=== PATIENT | male | born 1970 | race American Indian/Alaskan Native ===

== ENCOUNTER 2017-04-06 13:21 | Emergency (ER) | payer SELFPAY ==
[2017-04-06 14:23] LABS: Basophils % (Auto) 0.9 % (0.0-1.8); Eosinophils % (Auto) 3.5 % (0.0-4.3); Hemoglobin 12.8 gm/dl (11.8-15.2); Mean Corpuscular HGB Conc 34 % (32-34); Mean Corpuscular Hemoglobin 32 pg (28-32); Mean Corpuscular Volume 94 fl (84-94); Platelet Count 217 K/mm3 (140-440); Red Blood Count 4.03 M/mm3 (3.65-5.03); Red Cell Distribution Width 14.3 % (13.2-15.2); White Blood Count 5.7 K/mm3 (4.5-11.0)
[2017-04-06 14:31] LABS: Anion Gap 19 mmol/L; Blood Urea Nitrogen 21 mg/dL (9-20); Calcium 9.4 mg/dL (8.4-10.2); Carbon Dioxide 25 mmol/L (22-30); Chloride 97.2 mmol/L (98-107); Glucose 105 mg/dL (75-100); Potassium 3.8 mmol/L (3.6-5.0); Sodium 137 mmol/L (137-145)
[2017-04-06 14:32] LABS: INR 0.96 (0.87-1.13)
[2017-04-06] MEDS ORDERED: CATAPRES PO ONE (16:38)
[2017-04-06] MEDS ORDERED: ASPIRIN PO ONE (16:38)
--- NOTE | 2017-04-06 17:16 | Emergency Department Report ---
ED Chest Pain HPI - General Chief Complaint: Chest Pain Stated Complaint: CHEST PAIN/SOB Time Seen by Provider: 04/06/17 16:29 Source: patient Mode of arrival: Ambulatory Limitations: No Limitations - History of Present Illness Initial Comments: 46-year-old male with a past medical history of kidney stones presents hospital complaints of chest pain at any 2 weeks. Pain is in the anterior chest, dull, intermittent, worse with movement, cough, and activity. Pain rated process tenderness in intensity. No specific alleviating factors. Patient also having a cough productive of yellow sputum and intermittent shortness of breath for 2 weeks. Patient admits to tobacco use but quit smoking 2 weeks ago when symptoms started. Patient presents significant hypertensive and states he has not seen a doctor in greater than 10 years. Denies headache, blurred vision, Tenderness, recent travel, fever, or leg edema. - Related Data Previous Rx's Medication Instructions Recorded Last Taken Type Metoprolol/Hydrochlorothiazide 1 tab PO BID #60 tablet 04/06/17 Unknown Rx [Metoprolol HCTZ 50-25 mg TAB] amLODIPine [Norvasc] 10 mg PO DAILY #30 tab 04/06/17 Unknown Rx Allergies Allergy/AdvReac Type Severity Reaction Status Date / Time No Known Allergies Allergy Unverified 04/06/17 13:53 Heart Score - HEART Score History: Slightly suspicious EKG: Non-specific Age: 45-65 Risk factors: 1-2 risk factors Troponin: < normal limit HEART Score: 3 ED Review of Systems ROS: Stated complaint: CHEST PAIN/SOB Other details as noted in HPI Comment: All other systems reviewed and negative Other: Constitutional: No fevers chills Eyes: No eye pain visual changes ENT: No ear pain or throat pain Neck: Denies pain Respiratory: As per HPI Cardiovascular: As per HPI GI: Denies abdominal pain, nausea, vomiting, diarrhea : Denies dysuria Musculoskeletal: Denies back pain Skin: Denies rash, lesions, erythema Neurologic: Denies headache, numbness, weakness Psychiatric: Denies suicidal ideation, hallucinations ED Past Medical Hx - Past Medical History Hx Kidney Stones: Yes - Surgical History Past Surgical History?: No - Social History Smoking Status: Former Smoker Substance Use Type: Alcohol - Medications Home Medications: Home Medications Medication Instructions Recorded Confirmed Last Taken Type Metoprolol/Hydrochlorothiazide 1 tab PO BID #60 tablet 06/23/17 Unknown Rx [Metoprolol HCTZ 50-25 mg TAB] amLODIPine [Norvasc] 10 mg PO DAILY #30 tab 04/06/17 Unknown Rx ED Physical Exam - General Limitations: No Limitations - Other Other exam information: General: No limitations, patient is alert in no acute distress Head exam: Atraumatic, normocephalic Eyes exam: Normal appearance ENT: Moist mucous membrane, normal oropharynx Neck exam: Normal inspection, full range of motion, no meningismus nontender Respiratory exam: Clear to auscultation bilateral, no wheezes, rales, crackles Cardiovascular: Normal rate and rhythm, chest wall nontender Abdomen: Soft, nondistended, and nontender, with normal bowel sounds, no rebound, or guarding Extremity: Full range of motion normal inspection no deformity, no calf tenderness or edema Back: Normal Inspection, full range of motion, no tenderness Neurologic: Alert, oriented x3, cranial nerves intact, no motor or sensory deficit Psychiatric: normal affect, normal mood Skin: Warm, dry, intact ED Course Vital Signs 04/06/17 04/06/17 04/06/17 13:47 16:07 17:00 Temperature 98.5 F Pulse Rate 91 H 100 H 99 H Respiratory 18 16 Rate Blood Pressure 236/166 209/157 Blood Pressure 198/149 [Left] O2 Sat by Pulse 100 100 Oximetry 04/06/17 17:46 Temperature Pulse Rate 72 Respiratory Rate Blood Pressure 213/144 Blood Pressure [Left] O2 Sat by Pulse Oximetry GAVINO score - Gavino Score Age > 65: (0) No Aspirin use within the Past 7 Days: (0) No 3 or more CAD Risk Factors: (0) No 2 or more Angina events in past 24 hrs: (1) Yes Known CAD with more than 50% Stenosis: (0) No Elevated Cardiac Markers: (0) No ST Deviation Greater than 0.5mm: (0) No GAVINO Score: 1 ED Medical Decision Making - Lab Data Result diagrams: 04/06/17 13:58 04/06/17 13:58 Lab Results 04/06/17 04/06/17 04/06/17 Range/Units 13:58 13:58 13:58 WBC 5.7 (4.5-11.0) K/mm3 RBC 4.03 (3.65-5.03) M/mm3 Hgb 12.8 (11.8-15.2) gm/dl Hct 38.0 (35.5-45.6) % MCV 94 (84-94) fl MCH 32 (28-32) pg MCHC 34 (32-34) % RDW 14.3 (13.2-15.2) % Plt Count 217 (140-440) K/mm3 Lymph % (Auto) 26.5 (13.4-35.0) % [place] % (Auto) 8.2 H (0.0-7.3) % Eos % (Auto) 3.5 (0.0-4.3) % Baso % (Auto) 0.9 (0.0-1.8) % Lymph # 1.5 (1.2-5.4) K/mm3 [place] # 0.5 (0.0-0.8) K/mm3 Eos # 0.2 (0.0-0.4) K/mm3 Baso # 0.1 (0.0-0.1) K/mm3 Seg Neutrophils % 60.9 (40.0-70.0) % Seg Neutrophils # 3.5 (1.8-7.7) K/mm3 PT 13.3 (12.2-14.9) Sec. INR 0.96 (0.87-1.13) Sodium 137 (137-145) mmol/L Potassium 3.8 (3.6-5.0) mmol/L Chloride 97.2 L (98-107) mmol/L Carbon Dioxide 25 (22-30) mmol/L Anion Gap 19 mmol/L BUN 21 H (9-20) mg/dL Creatinine 1.5 (0.8-1.5) mg/dL Estimated GFR 50 ml/min BUN/Creatinine Ratio 14.00 % Glucose 105 H (75-100) mg/dL Calcium 9.4 (8.4-10.2) mg/dL Troponin T < 0.010 (0.00-0.029) ng/mL - EKG Data -: EKG Interpreted by Me (sinus rhythm rate 93,SRIKANTH, lateral and inferior T inversions LVH with rep) - Radiology Data Radiology results: image reviewed (cxr pa and lat: naf) - Medical Decision Making No acute infiltrate identified on x-ray. Parents admitted to the hospital due to significant hypertension with associated chest pain and no previous risk stratification or cardiac workup. Patient is pain free during my evaluation. Clonidine 0.2 mg and aspirin 325 provide - Differential Diagnosis hypertensive emergency, chest pain, pneumonia, bronchitis Critical Care Time: No Critical care attestation.: If time is entered above; I have spent that time in minutes in the direct care of this critically ill patient, excluding procedure time. ED Disposition Clinical Impression: Chest pain, Uncontrolled hypertension, Smoker, Cough Disposition: OP ADMIT IP TO THIS HOSP Is pt being admited?: Yes Does the pt Need Aspirin: Yes Condition: Stable Prescriptions: amLODIPine [Norvasc] 10 mg PO DAILY #30 tab Metoprolol/Hydrochlorothiazide [Metoprolol HCTZ 50-25 mg TAB] 1 tab PO BID #60 tablet Time of Disposition: 17:17 (Dr Hein/hosp)
--- NOTE | 2017-04-06 17:26 | History and Physical Report ---
Medications and Allergies Allergies Allergy/AdvReac Type Severity Reaction Status Date / Time No Known Allergies Allergy Unverified 04/06/17 13:53 Home Medications Medication Instructions Recorded Confirmed Last Taken Type No Known Home Medications [No 04/06/17 04/06/17 Unknown History Reported Home Medications] Exam - Constitutional Vitals: Temp Pulse Resp BP Pulse Ox 98.5 F 99 H 16 209/157 100 04/06/17 13:47 04/06/17 17:00 04/06/17 16:07 04/06/17 17:00 04/06/17 16:07 Results - Labs CBC & Chem 7: 04/06/17 13:58 04/06/17 13:58 Labs: Abnormal lab results 04/06/17 04/06/17 Range/Units 13:58 13:58 [place] % (Auto) 8.2 H (0.0-7.3) % Chloride 97.2 L (98-107) mmol/L BUN 21 H (9-20) mg/dL Glucose 105 H (75-100) mg/dL
[2017-04-06] MEDS ORDERED: NORVASC PO ONE ×2 (17:29→18:00)
[2017-04-06] MEDS ORDERED: HCTZ PO ONE (17:30)
[2017-04-06] MEDS ORDERED: LOPRESSOR PO ONE (17:30)
[2017-04-06] MEDS ORDERED: APRESOLINE IV ONE (18:00)
[2017-04-06 19:13] VITALS: BP 155/93
--- NOTE | 2017-04-07 09:55 | XRay Report ---
ROUTINE CHEST, TWO VIEWS: HISTORY: Chest pain and cough. No comparison. The lungs appear hyperinflated. Heart size and pulmonary vascularity are borderline. No evidence for infiltrate, pleural effusion or pneumothorax. Normal bony structures. IMPRESSION: Hyperinflation. Borderline heart size and pulmonary vascularity.
== END 2017-04-06 20:04 | disposition admitted as inpatient to this hospital (09) ==
LOC: ED 13:21
DX: R07.89 Other chest pain (principal); I10 Essential (primary) hypertension; R05 Cough; F17.200 Nicotine dependence, unspecified, uncomplicated
CPT/HCPCS: 36415; 71020; 80048; 84484; 85025; 85610; 93005; 93010; 96374; 99285; J0360